=== PATIENT | female | born 1960 | race Caucasian/White ===

== ENCOUNTER 2020-07-08 00:21 | Emergency (ER) | payer OTHER ==
[~2020-07-08 00:21] MED LIST: MECLIZINE HCL25 MG PO
[2020-07-08 04:53] LABS: HEMOGLOBIN 14.3 gm/dl (12.3-15.3); RED BLOOD COUNT 4.62 M/UL (4.00-5.10); WHITE BLOOD COUNT 13.3 K/UL (4.5-11.0)
[2020-07-08 05:05] LABS: BUN/CREATININE RATIO 18 (0-10)
== END 2020-07-08 11:40 | disposition home or self-care (01) ==
LOC: ER1 00:21
PROVIDERS: Family Medicine
DX: R07.89 Other chest pain (principal); R10.11 Right upper quadrant pain; R10.31 Right lower quadrant pain; R10.32 Left lower quadrant pain; Z88.1 Allergy status to other antibiotic agents
CPT/HCPCS: 76705; 80053; 81001; 82150; 83690; 85025; 85379; 96374; 96375; 99284; J1885; J2405; Q9967